=== PATIENT | female | born 1960 | race Caucasian/White ===

== ENCOUNTER 2018-06-25 06:47 | Outpatient (CLI) | payer OTHER ==
[2018-06-25 13:40] LABS: Hemoglobin 12.7 g/dL (12.0-16.0); Mean Corpuscular HGB CONC 33.2 g/dL (32.0-36.0); Mean Corpuscular Hemoglobin 27.1 pg (27.0-31.0); Mean Corpuscular Volume 81.6 fL (78.0-98.0); Mean Platelet Volume 6.6 fL (7.4-10.4); Platelet Count 289 thou/uL (130-400); Red Blood Cell (RBC) Count 4.68 mill/uL (4.20-5.40); White Blood Cell (WBC) Count 7.2 thou/uL (4.8-10.8)
[2018-06-25 13:46] LABS: PTT 25.7 SEC (22.9-36.1); Prothrombin Time 13.5 SEC (12.0-14.7)
[2018-06-25 14:02] LABS: Anion Gap 14 mmol/L (10-20); BUN (Urea Nitrogen) 9 mg/dL (9.8-20.1); Calc. Creatinine Clearance 0 mL/min (70-130); Calcium 10.1 mg/dL (7.8-10.44); Carbon Dioxide 23 mmol/L (22-29); Chloride 106 mmol/L (98-107); Estimated GFR-MDRD 81; Glucose 99 mg/dL (70-105); Potassium 4.4 mmol/L (3.5-5.1); Sodium 139 mmol/L (136-145)
--- NOTE | 2018-06-28 20:40 | EKG ---
Test Reason : Blood Pressure : / mmHG Vent. Rate : 068 BPM Atrial Rate : 068 BPM P-R Int : 118 ms QRS Dur : 078 ms QT Int : 390 ms P-R-T Axes : 053 016 047 degrees QTc Int : 414 ms Normal sinus rhythm Low voltage QRS Cannot rule out Anterior infarct , age undetermined Abnormal ECG No previous ECGs available Confirmed by Ivan BOTELLO ([id number]) on 06/28/2018 8:40:16 PM Referred By: [email or web address] Confirmed By:Ivan BOTELLO
== END 2018-06-25 06:48 | disposition home or self-care (01) ==
LOC: LABBT 06:47
PROVIDERS: ATTEND Internal Medicine Cardiovascular Disease
DX: Z01.818 Encounter for other preprocedural examination (principal); I47.1 Supraventricular tachycardia
CPT/HCPCS: 80048; 85027; 85610; 85730; 93005; 93010

== ENCOUNTER 2018-07-02 10:25 | Day surgery (SDC) | payer OTHER ==
[2018-06-25 13:05] VITALS: BMI 30.6
[2018-07-02] MEDS ORDERED: DOPamine 400 MG/D5W 250 ML 0 ML ONE (10:36)
[2018-07-02] MEDS ORDERED: Heparin 10,000 UNITS/1 ML VIAL ONE (10:44)
[2018-07-02] MEDS ORDERED: Fentanyl 100 MCG/2 ML VIAL ONE (12:13)
[2018-07-02] MEDS ORDERED: Propofol 1,000 MG/100 ML VIAL IV ONE ×2 (12:13→12:15)
[2018-07-02] MEDS ORDERED: Isoproterenol 0.2 MG/1 ML AMP ONE (13:19)
[2018-07-02] MEDS ORDERED: PROPOFOL 200 MG/20 ML VIAL ONE (15:55)
[2018-07-02] MEDS ORDERED: PHENYLEPHRINE-NS 100 MCG/ML 10 ML SYRINGE ONE (15:55)
[2018-07-02] MEDS ORDERED: HYDROcodone/Acetaminophen 5/325 mg Tablet ONE (17:40)
--- NOTE | 2018-07-02 20:43 | OP ---
DATE OF PROCEDURE: 06/30/2018 Electrophysiology Study and Radiofrequency Ablation Report. REFERRING PHYSICIAN: Dewayne Latham MD. REASON FOR PROCEDURE: Mrs. Sanz is a pleasant 58-year-old woman with history of hypertension, preserved LVEF and telemetry documented SVTs in the past with continued recurrent palpitations. She is wishing to come off flecainide, here for an EP study and ablation procedure. DESCRIPTION OF PROCEDURE: The patient received propofol by Anesthesia specialist. The left and right femoral veins in this area were prepped, draped, and anesthetized using subcutaneous lidocaine and with ultrasound guidance, the left femoral vein was cannulated x2. A 6 and 8-Cymro short sheath were then introduced through which a decapolar and octapolar catheters were advanced to the right atrium, right ventricle, His bundle and CS position. Pacing, mapping and recording were performed at each location. The following findings were noted. The baseline cycle length is 607 millisecond, sinus rhythm, AR 104 milliseconds, QRS 75, QTc 337, AH 35, HV 56 milliseconds. The sinus node recovery time was 766 milliseconds after overdrive pacing at 600 milliseconds. AV Wenckebach cycle length was 330 milliseconds. Retrograde Wenckebach cycle length was 300 milliseconds. AV poonam ERP was 600/220 milliseconds. Concentric retrograde VA conduction was seen. Dual AV node physiology was present. Burst atrial pacing at baseline did not induce any tachyarrhythmias, but Isuprel was administered with up to 8 mcg per minute during which burst atrial pacing was able to induce one-to-one SVT. Burst overdrive atrial pacing terminated the SVT. The VA timing was very short suggestive of AV poonam reentry tachycardia. At this point, the right femoral venous area was prepped, draped, anesthetized and accessed under ultrasound guidance and an 8-Cymro short sheath was introduced through which a 4 mm standard ablation catheter was advanced to the right atrium. A 3D map of the right atrium, His bundle, and CS, all areas were delineated. The slow pathway area was figured out and radiofrequency ablation was performed at 40 l[place] for a total of 7 ablations delivered over 3 minutes and 21 seconds. The max temperatures were 45 degrees, average 38, minimum 32 degrees Celsius. Following that, burst atrial pacing again performed demonstrating AV Wenckebach about 330 milliseconds, post RFA. On the other hand, on extrastimuli testing, we were not able to demonstrate the presence of slow pathway. Burst atrial pacing also failed to induce previous noted supraventricular tachycardia. At the end of the case, cardiac silhouette was rechecked and we found no change. The patient tolerated the procedure well. No complications. CONCLUSION: 1. Inducible atrioventricular poonam reentrant tachycardia. 2. Slow pathway ablation and inducibility of the atrioventricular poonam reentrant tachycardia and also no evident slow pathway conduction was seen either. 3. Normal atrioventricular poonam sinus poonam function, otherwise. 4. No evidence of accessory pathway. 5. No inducible ventricular tachyarrhythmias even with single ventricular extrastimuli and no other atrial arrhythmias seen either. PLAN: Routine post ablation care. Job ID: [id number]
== END 2018-07-02 18:00 | disposition home or self-care (01) ==
LOC: CCL 10:25
PROVIDERS: ATTEND Internal Medicine Cardiovascular Disease
PROC: 4A023FZ Measurement of Cardiac Rhythm, Percutaneous Approach (ICD-10-PCS; principal; 2018-07-02)
PROC: 4A0234Z Measurement of Cardiac Electrical Activity, Percutaneous Approach (ICD-10-PCS; principal; 2018-07-02)
PROC: 02583ZZ Destruction of Conduction Mechanism, Percutaneous Approach (ICD-10-PCS; principal; 2018-07-02)
PROC: 02K83ZZ Map Conduction Mechanism, Percutaneous Approach (ICD-10-PCS; principal; 2018-07-02)
DX: I47.1 Supraventricular tachycardia (principal); I10 Essential (primary) hypertension; E78.00 Pure hypercholesterolemia, unspecified; E11.9 Type 2 diabetes mellitus without complications; E66.9 Obesity, unspecified; Z68.30 Body mass index [BMI] 30.0-30.9, adult; F41.9 Anxiety disorder, unspecified; F32.9 Major depressive disorder, single episode, unspecified; K76.0 Fatty (change of) liver, not elsewhere classified; Z79.84 Long term (current) use of oral hypoglycemic drugs; Z79.82 Long term (current) use of aspirin; Z79.899 Other long term (current) drug therapy
CPT/HCPCS: 76942; 93005; 93010; 93613; 93623; 93653; C1730; C1769; J1265; J1644; J2704; J3010

== ENCOUNTER 2018-08-19 12:50 | Outpatient (CLI) | payer OTHER ==
--- NOTE | 2018-08-19 15:20 | ULT ---
ULTRASOUND WITH DOPPLER DUPLEX VENOUS LOWER EXTREMITY BILATERAL: CPT: 24299 ICD-10-PCS: B54D HISTORY: Pain, edema. TECHNIQUE: Color flow Doppler, spectral waveform analysis of pulsed Doppler, and yang-scale imaging with rodrigo flynn and augmentation, were used to evaluate the bilateral common femoral, femoral, popliteal, field service analyst ior tibial, and superficial femoral, veins; and the proximal portions of the profunda femoral and gre ater saphenous, veins. FINDINGS: There is appropriate compressibility and flow within the imaged deep vein system of the bilateral low er extremities without evidence of DVT. IMPRESSION: No deep vein thrombosis identified within the visualized bilateral lower extremities. POS: [facility]
--- NOTE | 2018-08-19 16:03 | CT ---
CTA CHEST WITH CONTRAST: Technique: Multiple contiguous axial images were obtained through the chest with IV enhancement follo wing a pulmonary angio protocol with multiplanar reconstruction and 3D post processing. Indications: Dyspnea. Oblation procedure in June. FINDINGS: Pulmonary arteries are well opacified. No evidence of pulmonary embolus. Thoracic aorta is unremarkable with no evidence of dissection. No evidence of pericardial effusion. No evidence of parul opathy. The lung hernandez appear clear. No infiltrate identified. There is cardiomegaly and mild vascul ar engorgement. No effusion. Review of the osseous structures shows mild compression deformity involving the T11 vertebra with abn ormal focal area of lucency in vertebral body posteriorly on the left. IMPRESSION: No evidence of pulmonary embolus or acute lung process. 2. Slight lateral compression involving the T11 vertebra with abnormal area of lucency within this ve rtebrae posteriorly on the left. Vertebral body lesion with pathologic compression cannot be excluded . Further evaluation with MRI thoracic spine is recommended. POS: [facility]
[2018-08-19] MEDS ORDERED: ISOVUE-370 76%-LOCM 1 ML ONE (16:31)
== END 2018-08-19 12:51 | disposition home or self-care (01) ==
LOC: BICULT 12:50
PROVIDERS: ATTEND Internal Medicine Cardiovascular Disease
DX: R06.00 Dyspnea, unspecified (principal); M79.661 Pain in right lower leg; M79.662 Pain in left lower leg; G95.20 Unspecified cord compression
CPT/HCPCS: 71275; 93970; Q9966